=== PATIENT | female | born 1980 | race Caucasian/White ===

== ENCOUNTER 2016-09-08 08:15 | Inpatient (IN) | payer OTHER ==
[~2016-09-08] VITALS: Ht 162.6 cm; Wt 104.3 kg
[2016-09-08] VITALS (49 sets, daily range): BP systolic 98–176; BP diastolic 55–94
[~2016-09-08 08:15] MED LIST: DCS100C PO; HYDR-3720 PO; IBP800T PO; LVT.088T PO; OXYC1TAB12 PO; PREN-102 PO
[2016-09-08] MEDS ORDERED: OXYTOCIN/NORMAL SALINE 500 ML IV SCH ×3 (08:47→12:46)
[2016-09-08] MEDS ORDERED: LIDOCAINE/EPI 1%-1:200,000 (XYLOCAINE) 30 ML VIAL ONE (08:48)
[2016-09-08] MEDS: D5 LR IV SOLUTION 1,000 ML IV SCH ×2 (09:13→15:48)
[2016-09-08 09:27] LABS: BASOPHILS % (AUTO) 0 % (0-10); EOSINOPHILS % (AUTO) 0 % (0-10); LYMPHOCYTES # (AUTO) 1.3 X 10^3 (1.0-4.0); LYMPHOCYTES % (AUTO) 16 % (12-44); MEAN CORPUSCULAR HEMOGLOBIN 30 PG (25-34); MEAN CORPUSCULAR HGB CONC 34 G/DL (32-36); MEAN CORPUSCULAR VOLUME 89 FL (80-99); MEAN PLATELET VOLUME 10.9 FL (7.4-10.4); MONOCYTES # (AUTO) 0.6 X 10^3 (0.0-1.0); MONOCYTES % (AUTO) 8 % (0-12); NEUTROPHILS # (AUTO) 6.5 X 10^3 (1.8-7.8); NEUTROPHILS % (AUTO) 77 % (42-75); PLATELET COUNT 160 10^3/uL (130-400); RED BLOOD COUNT 4.11 10^6/uL (4.35-5.85); RED CELL DISTRIBUTION WIDTH 13.8 % (10.0-14.5); WHITE BLOOD COUNT 8.5 10^3/uL (4.3-11.0)
[2016-09-08 09:28] LABS: BILIRUBIN,URINE NEGATIVE (NEGATIVE); KETONES,URINE NEGATIVE (NEGATIVE); LEUKOCYTE ESTERASE ,URINE 1+ (NEGATIVE); NITRITE,URINE NEGATIVE (NEGATIVE); PH,URINE 6.5 (5-9); PROTEIN,URINE NEGATIVE (NEGATIVE); UROBILINOGEN,URINE NORMAL (NORMAL)
[2016-09-08 09:36] LABS: SQUAMOUS EPITHELIAL CELL,UR 25-50 /HPF; WBC,URINE RARE /HPF
--- NOTE | 2016-09-08 12:51 | History & Physical ---
History and Physical this patient is a 35-year-old white female with an EDC of 5 [phone] putting her now at 38 weeks and 2 days. She was admitted for induction of labor secondary to polyhydramnios that has been progressive. 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 Patient denies rupture membranes or bleeding. She is having occasional contractions on presentation. She does feel baby moving. GBS culture was negative. Allergies are none Medications are vitamins and levothyroxine 112 g daily Medical social histories are per the antepartum record HEENT exam is normal Neck is supple no lymphadenopathy no thyromegaly Abdomen is gravid soft nontender nondistended Extremities show no clubbing cyanosis. There is no Homans sign. Pelvic exam shows a cervix 2 cm dilated 60 percent effaced -1 station soft and anterior which equates to a Matute score of 9 The monitor shows normal heart rate pattern patient has had an occasional D cell. There are no repetitive D cells and variability is adequate Laboratory Tests Test 09/08/16 09:07 09/08/16 09:15 Range/Units White Blood Count 8.5 4.3-11.0 10^3/uL Red Blood Count 4.11 L 4.35-5.85 10^6/uL Hemoglobin 12.4 11.5-16.0 G/DL Hematocrit 37 35-52 % Mean Corpuscular Volume 89 80-99 FL Mean Corpuscular Hemoglobin 30 25-34 PG Mean Corpuscular Hemoglobin Concent 34 32-36 G/DL Red Cell Distribution Width 13.8 10.0-14.5 % Platelet Count 160 130-400 10^3/uL Mean Platelet Volume 10.9 H 7.4-10.4 FL Neutrophils (%) (Auto) 77 H 42-75 % Lymphocytes (%) (Auto) 16 12-44 % Monocytes (%) (Auto) 8 0-12 % Eosinophils (%) (Auto) 0 0-10 % Basophils (%) (Auto) 0 0-10 % Neutrophils # (Auto) 6.5 1.8-7.8 X 10^3 Lymphocytes # (Auto) 1.3 1.0-4.0 X 10^3 Monocytes # (Auto) 0.6 0.0-1.0 X 10^3 Eosinophils # (Auto) 0.0 0.0-0.3 10^3/uL Basophils # (Auto) 0.0 0.0-0.1 10^3/uL Urine Color YELLOW Urine Clarity CLEAR Urine pH 6.5 5-9 Urine Specific [place] 1.020 1.016-1.022 Urine Protein NEGATIVE NEGATIVE Urine Glucose (UA) NEGATIVE NEGATIVE Urine Ketones NEGATIVE NEGATIVE Urine Nitrite NEGATIVE NEGATIVE Urine Bilirubin NEGATIVE NEGATIVE Urine Urobilinogen NORMAL NORMAL MG/DL Urine Leukocyte Esterase 1+ H NEGATIVE Urine RBC (Auto) NEGATIVE NEGATIVE Urine RBC NONE /HPF Urine WBC RARE /HPF Urine Squamous Epithelial Cells 25-50 H /HPF Urine Crystals NONE /LPF Urine Bacteria TRACE /HPF Urine Casts NONE /LPF Urine Mucus NEGATIVE /LPF Urine Culture Indicated NO Lab work is within normal limits for Assessment and plan 38-7 weeks' gestation with polyhydramnios in a patient with his is complicated by vanishing twin syndrome. Patient is being induced with Pitocin. Her contractions have begun somewhat intensify. We anticipate a vaginal delivery but would be prepared for if needed at 38-2/7 weeks' gestation with polyhydramnios Allergies and Home Medications Allergies Coded Allergies: No Known Drug Allergies (Unverified , 08/30/13) Home Medications Levothyroxine Sodium 88 Mcg Tablet, 88 MCG PO DAILY, (Reported) Vits #93/Iron Fum/Fa 1 Each Tablet, 1 TAB PO DAILY, (Reported) Clinical Quality Measures DVT/VTE Risk/Contraindication: Risk Factor Score Per Nursin RFS Level Per Nursing on Admit: 1=Low/No VTE PPX PANDA HARE MD Sep 08, 2016 12:51 pm
--- NOTE | 2016-09-08 12:52 | OB Bishop Score ---
Matute Score 9 PANDA HARE MD Sep 08, 2016 12:52 pm
[2016-09-08] MEDS ORDERED: TETANUS,DIPTH,PERTUSS P/F (BOOSTRIX) 0.5 ML VIAL IM ONE (13:00)
[2016-09-08] MEDS ORDERED: MEASLES,MUMPS,RUBELLA 1 EA INJ SC ONE (13:00)
[2016-09-08] MEDS ORDERED: oxyCODONE/APAP 10/325MG (PERCOCET 10) TABLET PO PRN (13:00)
[2016-09-08] MEDS ORDERED: BENZOCAINE/MENTHOL (DERMOPLAST) 56 ML CAN TP PRN (13:00)
[2016-09-08] MEDS ORDERED: LACTATED RINGERS 1,000 ML IV ONE ×2 (13:48→14:49)
[2016-09-08] MEDS ORDERED: SUFENTA 0.6MCG/ML BUPIVA 0.125 100 ML ONE (13:49)
[2016-09-08] MEDS ORDERED: CATHETER FLUSH 10 ML SYR IV SCH (14:00)
[2016-09-08] MEDS ORDERED: ONDANSETRON 4 MG/2 ML (SDV) Z0FRAN ONE (14:27)
[2016-09-08] MEDS ORDERED: BUPIVACAINE 0.25% 30 ML (SENSORCAINE) VIAL ONE (14:28)
[2016-09-08] MEDS ORDERED: BUPIVACAINE 0.25% 30 ML (SENSORCAINE) VIAL INJ ONE (15:00)
[2016-09-08] MEDS ORDERED: NALOXONE 0.4 MG/ML 1 ML (NARCAN) VIAL IV PRN (15:00)
[2016-09-08] MEDS ORDERED: EPIDURAL (SUFENTA 0.6MCG/ML BUPIVA 0.125%) 100 ML BAG EPI SCH (15:00)
[2016-09-08] MEDS: KETOROLAC 30 MG/ML VIAL IV SCH (19:06)
[2016-09-08] MEDS: DOCUSATE SODIUM 100 MG (COLACE) CAP PO SCH (21:45)
[2016-09-09 01:05] VITALS: BP 128/82
[2016-09-09] MEDS: KETOROLAC 30 MG/ML VIAL IV SCH ×2 (01:10→07:02)
[2016-09-09 05:35] VITALS: BP 114/80
--- NOTE | 2016-09-09 07:43 | Progress Note-Standard ---
Standard Progress Note Progress Notes/Assess & Plan Progress/Assessment & Plan this patient is without complaint. She is ambulating, voiding, tolerating by mouth well, has good pain control. Vital Signs Date Time Temp Pulse Resp B/P (MAP) Pulse Ox O2 Delivery O2 Flow Rate FiO2 09/09/16 05:35 97.4 91 18 114/80 97 Room Air 09/09/16 01:05 96.6 93 18 128/82 97 Room Air 09/08/16 20:34 108 18 127/71 Room Air 09/08/16 20:32 97.6 106 18 123/59 Room Air 09/08/16 20:17 103 18 125/70 Room Air 09/08/16 20:02 112 18 137/77 Room Air 09/08/16 19:47 105 18 121/58 Room Air 09/08/16 19:35 98 18 131/62 Room Air 09/08/16 19:33 99.0 106 18 176/65 Room Air 09/08/16 19:18 106 18 137/69 Room Air 09/08/16 19:04 98.8 106 18 130/81 Room Air 09/08/16 17:45 99.3 108 18 135/79 Room Air 09/08/16 17:30 108 18 125/76 Room Air 09/08/16 17:15 96 18 128/67 Room Air 09/08/16 16:50 100 18 113/59 Room Air 09/08/16 16:15 109 18 100 Room Air 09/08/16 16:00 102 18 100/66 99 Room Air 09/08/16 15:45 104 20 115/60 100 Room Air 09/08/16 15:30 99 20 100 Room Air 09/08/16 15:25 108 18 104/59 100 Room Air 09/08/16 15:20 107 18 120/61 100 Room Air 09/08/16 15:15 101 20 104/55 100 Room Air 09/08/16 15:10 107 18 106/55 99 Room Air 09/08/16 15:05 111 18 98/56 100 Room Air 09/08/16 15:00 112 20 139/80 100 Room Air 09/08/16 14:55 118 18 113/59 99 Room Air 09/08/16 14:50 118 18 118/61 99 Room Air 09/08/16 14:45 122 20 139/80 100 Room Air 09/08/16 14:40 101 18 141/80 100 Room Air 09/08/16 14:35 110 18 144/77 100 Room Air 09/08/16 14:30 98.4 106 20 140/73 Room Air 09/08/16 14:15 96 18 124/75 Room Air 09/08/16 14:00 100 18 127/79 Room Air 09/08/16 13:45 96 18 122/76 Room Air 09/08/16 13:30 96 18 132/83 Room Air 09/08/16 13:15 100 18 122/77 Room Air 09/08/16 13:00 100 18 130/82 Room Air 09/08/16 12:45 96 18 133/85 Room Air 09/08/16 12:30 100 18 123/79 Room Air 09/08/16 12:15 94 18 127/82 Room Air 09/08/16 12:00 98.6 102 18 132/80 Room Air 09/08/16 11:45 103 18 132/81 Room Air 09/08/16 11:30 103 18 132/84 Room Air 09/08/16 11:15 99 18 130/82 Room Air 09/08/16 11:00 99 18 130/82 Room Air 09/08/16 10:45 97.9 100 18 127/70 Room Air 09/08/16 10:30 97 18 139/78 Room Air 09/08/16 10:15 103 18 135/81 Room Air 09/08/16 10:00 118 18 129/74 Room Air 09/08/16 09:45 102 18 137/75 Room Air 09/08/16 09:30 109 18 149/83 Room Air 09/08/16 09:15 130 18 147/94 Room Air 09/08/16 08:30 98.6 114 18 137/87 Room Air vital signs are stable. Patient is afebrile. Fundus is firm below the umbilicus and nontender. Extremities show no clubbing cyanosis. There is no Homans sign. There is some pretibial pitting edema that is normal. Assessment and plan day number 1 status post term spontaneous vaginal delivery doing well. Plan is for routine convalescence care today and discharge home tomorrow Final Diagnosis term spontaneous vaginal delivery PANDA HARE MD Sep 09, 2016 7:43 am
[2016-09-09] MEDS ORDERED: IBUP-1780 PO (07:44)
[2016-09-09] MEDS ORDERED: OXYC-465 PO (07:45)
[2016-09-09] MEDS ORDERED: DOCU100C37 PO (07:45)
--- NOTE | 2016-09-09 07:45 | Discharge Instructions ---
Discharge Instructions Discharge Medications New, Converted or Re-Newed RX: RX on Chart Patient Instructions Patient Instructions: as directed Return to The Hospital For: as directed Activity & Diet Discharge Diet: No Restrictions Activity as Tolerated: No Orders-Post D/C & Referrals Follow Up Appt: Call to make follow up appt. for patient in 4 weeks. Activity Per routine post vaginal delivery instructions. Please call in RX to patient pharmacy. Diet as tolerated Patient may shower or tub bathe as desired. PANDA HARE MD Sep 09, 2016 7:45 am
--- NOTE | 2016-09-09 08:06 | OPERATIVE REPORT ---
DATE OF SERVICE: 09/08/2016 DELIVERY NOTE The patient delivered by term spontaneous vaginal delivery a viable female infant with Apgars of 9 and 9 at 1 and 5 minutes. Expected weight was 6 pounds 1 ounces. time was 1631. The infant had a single nuchal cord that was easily released. Cord blood gas was 7.29. The patient delivered by term spontaneous vaginal delivery without difficulty. The was bulb suctioned on delivery of the head and again on completion of delivery. The umbilical cord was doubly clamped, father cut the cord, the baby was passed to mom's abdomen. Episiotomy had been performed at the patient's request as the perineum began to tear in multiple locations. Episiotomy was performed. The patient delivered the baby with the next 2 pushes. The placenta delivered spontaneously Ji. This patient had a history of vanishing twin, there was anomaly on one periphery at the placenta and there were blood vessels that traveled off the bed of the placenta and there was no placental tissue that those blood vessels coursed to. The placenta was sent to pathology for permanent section. The cervix, vagina, rectum and perineum were examined and found essentially intact, except for multiple lacerations of the hymenal ring and the midline episiotomy, all of which were repaired with a single suture of 3-0 Vicryl Rapide. Good reapproximation was achieved. Good hemostasis was achieved. Good cosmetic effect was achieved. The patient tolerated the delivery and the repair well and remained in the LDR for recovery. The baby remained with the mom. Sponge and needle counts were correct on completion of the delivery and the repair. Estimated blood loss was around 300 cc. Job ID: [id number] DocumentID: [id number] Dictated Date: 09/08/2016 16:58:31 Propellant Charge Zone Assembler Date: 09/09/2016 05:10:33 Dictated By: PANDA HARE MD
[2016-09-09] MEDS ORDERED: TETANUS,DIPTH,PERTUSS P/F (BOOSTRIX) 0.5 ML VIAL IM ONE (08:39)
[2016-09-09 09:37] VITALS: BP 122/70
[2016-09-09] MEDS: DOCUSATE SODIUM 100 MG (COLACE) CAP PO SCH ×2 (09:39→20:48)
[2016-09-09 12:45] VITALS: BP 116/78
[2016-09-09] MEDS: IBUPROFEN 800 MG (MOTRIN) TAB PO SCH ×2 (12:57→18:40)
--- NOTE | 2016-09-09 13:06 | Anesthesia-Regional Post-Op ---
Regional Patient Condition Mental Status: Alert, Oriented x3 Circulation: Same as Pre-Op Headache: Absent Sensation: Full Recovery Motor Block: Absent Post Op Complications Complications None Follow Up Care/Instructions Patient Instructions None needed. Anesthesia/Patient Condition Patient is doing well, no complaints, stable vital signs, no apparent adverse anesthesia problems. No complications reported per nursing. KAYA PALACIOS CRNA Sep 09, 2016 13:06
[2016-09-09 17:40] VITALS: BP 111/75
[2016-09-09 22:10] VITALS: BP 146/90
[2016-09-10] MEDS: IBUPROFEN 800 MG (MOTRIN) TAB PO SCH ×3 (00:40→12:19)
[2016-09-10 04:55] VITALS: BP 121/86
--- NOTE | 2016-09-10 07:36 | Progress Note-Standard ---
Standard Progress Note Progress Notes/Assess & Plan Progress/Assessment & Plan this patient is without complaint. She is ambulating, voiding, tolerating by mouth well, has good pain control. Vital Signs Date Time Temp Pulse Resp B/P (MAP) Pulse Ox O2 Delivery O2 Flow Rate FiO2 09/09/16 05:35 97.4 91 18 114/80 97 Room Air 09/09/16 01:05 96.6 93 18 128/82 97 Room Air 09/08/16 20:34 108 18 127/71 Room Air 09/08/16 20:32 97.6 106 18 123/59 Room Air 09/08/16 20:17 103 18 125/70 Room Air 09/08/16 20:02 112 18 137/77 Room Air 09/08/16 19:47 105 18 121/58 Room Air 09/08/16 19:35 98 18 131/62 Room Air 09/08/16 19:33 99.0 106 18 176/65 Room Air 09/08/16 19:18 106 18 137/69 Room Air 09/08/16 19:04 98.8 106 18 130/81 Room Air 09/08/16 17:45 99.3 108 18 135/79 Room Air 09/08/16 17:30 108 18 125/76 Room Air 09/08/16 17:15 96 18 128/67 Room Air 09/08/16 16:50 100 18 113/59 Room Air 09/08/16 16:15 109 18 100 Room Air 09/08/16 16:00 102 18 100/66 99 Room Air 09/08/16 15:45 104 20 115/60 100 Room Air 09/08/16 15:30 99 20 100 Room Air 09/08/16 15:25 108 18 104/59 100 Room Air 09/08/16 15:20 107 18 120/61 100 Room Air 09/08/16 15:15 101 20 104/55 100 Room Air 09/08/16 15:10 107 18 106/55 99 Room Air 09/08/16 15:05 111 18 98/56 100 Room Air 09/08/16 15:00 112 20 139/80 100 Room Air 09/08/16 14:55 118 18 113/59 99 Room Air 09/08/16 14:50 118 18 118/61 99 Room Air 09/08/16 14:45 122 20 139/80 100 Room Air 09/08/16 14:40 101 18 141/80 100 Room Air 09/08/16 14:35 110 18 144/77 100 Room Air 09/08/16 14:30 98.4 106 20 140/73 Room Air 09/08/16 14:15 96 18 124/75 Room Air 09/08/16 14:00 100 18 127/79 Room Air 09/08/16 13:45 96 18 122/76 Room Air 09/08/16 13:30 96 18 132/83 Room Air 09/08/16 13:15 100 18 122/77 Room Air 09/08/16 13:00 100 18 130/82 Room Air 09/08/16 12:45 96 18 133/85 Room Air 09/08/16 12:30 100 18 123/79 Room Air 09/08/16 12:15 94 18 127/82 Room Air 09/08/16 12:00 98.6 102 18 132/80 Room Air 09/08/16 11:45 103 18 132/81 Room Air 09/08/16 11:30 103 18 132/84 Room Air 09/08/16 11:15 99 18 130/82 Room Air 09/08/16 11:00 99 18 130/82 Room Air 09/08/16 10:45 97.9 100 18 127/70 Room Air 09/08/16 10:30 97 18 139/78 Room Air 09/08/16 10:15 103 18 135/81 Room Air 09/08/16 10:00 118 18 129/74 Room Air 09/08/16 09:45 102 18 137/75 Room Air 09/08/16 09:30 109 18 149/83 Room Air 09/08/16 09:15 130 18 147/94 Room Air 09/08/16 08:30 98.6 114 18 137/87 Room Air vital signs are stable. Patient is afebrile. Fundus is firm below the umbilicus and nontender. Extremities show no clubbing cyanosis. There is no Homans sign. There is some pretibial pitting edema that is normal. Assessment and plan day number 1 status post term spontaneous vaginal delivery doing well. Plan is for routine convalescence care today and discharge home tomorrow September 10, 2016 Patient is without complaint. She is ambulating, voiding, tolerating by mouth, has good pain control and is requesting discharge home. Vital Signs Date Time Temp Pulse Resp B/P (MAP) Pulse Ox O2 Delivery O2 Flow Rate FiO2 09/10/16 04:55 98.6 78 18 121/86 98 Room Air 09/09/16 22:10 98.1 83 18 146/90 99 Room Air 09/09/16 17:40 98.5 80 18 111/75 96 Room Air 09/09/16 12:45 98.9 85 18 116/78 97 Room Air 09/09/16 09:37 97.0 94 18 122/70 97 Room Air I & O 09/10/16 07:00 Intake Total 1000 ml Balance 1000 ml vital signs are stable. Patient afebrile. Fundus is firm below the umbilicus and nontender. Extreme show clubbing cyanosis. There is no Homans sign. There is some pretibial pitting edema that is normal. Assessment and plan day number 2 status post term spontaneous vaginal delivery doing well. Plan is for discharge home with follow-up in clinic Final Diagnosis on spontaneous vaginal delivery PANDA HARE MD Sep 10, 2016 7:36 am
[2016-09-10 09:55] VITALS: BP 130/91
[2016-09-10] MEDS: DOCUSATE SODIUM 100 MG (COLACE) CAP PO SCH (09:55)
[2016-09-11] MEDS ORDERED: LORATADINE (CLARITIN) 10 MG TAB PO SCH (09:00)
== END 2016-09-10 15:25 | disposition home or self-care (01) | DRG 775 ==
LOC: LDRP 08:15
PROVIDERS: ADMIT Obstetrics & Gynecology; ATTEND Obstetrics & Gynecology
PROC: 10E0XZZ Delivery of Products of Conception, External Approach (ICD-10-PCS; principal; 2016-09-08)
PROC: 0W8NXZZ Division of Female Perineum, External Approach (ICD-10-PCS; 2016-09-08)
PROC: 0HQ9XZZ Repair Perineum Skin, External Approach (ICD-10-PCS; 2016-09-08)
PROC: 3E033GC Introduction of Other Therapeutic Substance into Peripheral Vein, Percutaneous Approach (ICD-10-PCS; 2016-09-08)
DX: O40.3XX0 Polyhydramnios, third trimester, not applicable or unspecified (principal); O31.10X0 Continuing pregnancy after spontaneous abortion of one fetus or more, unspecified trimester, not applicable or unspecified; O69.81X0 Labor and delivery complicated by cord around neck, without compression, not applicable or unspecified; O70.0 First degree perineal laceration during delivery; Z37.0 Single live birth; Z3A.38 38 weeks gestation of pregnancy; Z23 Encounter for immunization
CPT/HCPCS: 36415; 81000; 85025; 86850; 86900; 86901; 87088; 88307; 90715

== ENCOUNTER → 2018-03-09 | Outpatient (CLI) | payer OTHER ==
[~2018-03-09] MED LIST changes: +DOCU100C37 PO; +IBUP-1780 PO; +OXYC-465 PO
--- NOTE | 2018-03-09 13:53 | Diagnostic Imaging Report ---
INDICATION: Routine screening. COMPARISON: No prior mammograms are available for comparison. This is a baseline study. TECHNIQUE: 2D and 3D bilateral screening mammography was performed with CAD. FINDINGS: Both breasts are heterogeneously dense, limiting the sensitivity of mammography. An intraparenchymal lymph node in the outer portion of the right breast is seen. No spiculated masses or malignant appearing microcalcifications are identified. The axillae are unremarkable. IMPRESSION: No mammographic features suspicious for malignancy are identified. ACR BI-RADS Category 2: Benign findings. Result letter will be mailed to the patient. Note: At least 10% of breast cancer is not imaged by mammography. Dictated by: Dictated on workstation # [id number]
== END ==
LOC: RAD 11:07
PROVIDERS: ATTEND Obstetrics & Gynecology
DX: Z12.31 Encounter for screening mammogram for malignant neoplasm of breast (principal)
CPT/HCPCS: 77067

== ENCOUNTER 2018-10-20 10:30 | Outpatient (CLI) | payer OTHER, BC ==
[~2018-10-20] VITALS: Ht 162.6 cm; Wt 104.3 kg
[2018-10-20] MEDS ORDERED: LEVO112T55 PO (10:45)
== END 2018-10-20 11:00 | disposition home or self-care (01) ==
LOC: PREOP 10:30
PROVIDERS: ATTEND Obstetrics & Gynecology
DX: Z01.818 Encounter for other preprocedural examination (principal)

== ENCOUNTER 2018-10-27 11:30 | Day surgery (SDC) | payer BC, OTHER ==
[~2018-10-27] VITALS: Ht 162.6 cm; Wt 104.3 kg
[2018-10-27] VITALS (11 sets, daily range): BP systolic 116–149; BP diastolic 84–103
[~2018-10-27 11:30] MED LIST changes: +LEVO112T55 PO
--- OUTSIDE RECORDS SUMMARY | 2018-10-27 11:34 | XMS REPORT | Continuity of Care Document ---
Author Organization Unknown Address Unknown Allergies Active Description Code Type Severity Reaction Onset Reported/Identified Relationship to Patient Clinical Status Yes No Known Drug Allergies [id number] Drug Allergy Unknown N/A 10/20/2018 Medications There is no data. Problems Date Dx Coded Attending Type Code Diagnosis Diagnosed By 09/02/2013 ANANYA DUKE, PANDA Schroeder Ot 543.0 09/02/2013 ANANYA DUKE, PANDA Schroeder Ot 614.6 09/02/2013 ANANYA DUKE, PANDA Schroeder Ot 617.1 09/02/2013 ANANYA DUKE, PANDA Schroeder Ot 617.3 09/02/2013 ANANYA DUKE, PANDA Schroeder Ot 620.0 09/02/2013 ANANYA DUKE, PANDA Schroeder Ot 620.1 09/02/2013 ANANYA DUKE, PANDA Schroeder Ot 625.8 09/02/2013 ANANYA DUKE, PANDA Schroeder Ot 626.8 09/02/2013 ANANYA DUKE, PANDA Schroeder Ot 752.19 04/30/2014 ANANYA DUKE, PANDA Schroeder Ot 617.9 04/30/2014 ANANYA DUKE, PANDA Schroeder Ot 620.2 04/30/2014 ANANYA DUKE, PANDA Schroeder Ot V72.63 04/30/2014 ANANYA DUKE, PANDA Schroeder Ot V72.84 04/30/2014 ANANYA DUKE, PANDA Schroeder Ot 617.9 04/30/2014 ANANYA DUKE, PANDA Schroeder Ot 620.2 04/30/2014 ANANYA DUKE, PANDA Schroedre Ot V72.63 04/30/2014 ANANYA DUKE, PANDA Schroeder Ot V72.84 04/30/2014 ALIDA CARTAGENA DO Ot 646.83 PREG COMPL NEC-ANTEPART 04/30/2014 ALIDA CARTAGENA DO, Ot 786.09 RESPIRATORY ABNORM NEC 04/30/2014 ALIDA CARTAGENA DO Ot 786.50 CHEST PAIN NOS 10/07/2014 PANDA HARE MD, Ot 658.01 OLIGOHYDRAMNIOS-DELIVER 10/07/2014 PANDA HARE MD, Ot 663.31 CORD ENTANGLE NEC-DELIV 10/07/2014 PANDA HARE MD, Ot 665.41 HIGH VAGINAL LACER-DELIV 10/07/2014 PANDA HARE MD, Ot V06.1 [id number], COMBINED [ 10/07/2014 PANDA HARE MD, Ot V27.0 DELIVER-SINGLE LIVEBORN 04/27/2016 SUSIE BARBER APRN Ot S93.401A SPRAIN OF UNSPECIFIED LIGAMENT OF RIGHT 04/27/2016 SUSIE BARBER APRN Ot S99.911A UNSPECIFIED INJURY OF RIGHT ANKLE, INITI 04/27/2016 SUSIE BARBER APRN Ot W10.9XXA FALL (ON) (FROM) UNSPECIFIED STAIRS AND 04/27/2016 SUSIE BARBER APRN Ot Y92.[address] OR NOT APPLICABLE 04/27/2016 SUSIE BARBER APRN Ot Y93.9 ACTIVITY, UNSPECIFIED 04/27/2016 SUSIE BARBER APRN Ot Y99.8 OTHER EXTERNAL CAUSE STATUS 04/27/2016 SUSIE BARBER APRN Ot Z3A.19 19 WEEKS GESTATION OF 09/10/2016 PANDA HARE MD, Ot O31.10X0 CONT PREG AFT SPON ABORT OF ONE FTS OR M 09/10/2016 PANDA HARE MD, Ot O40.3XX0 POLYHYDRAMNIOS, THIRD TRIMESTER, NOT LAVERNE 09/10/2016 PANDA HARE MD, Ot O69.81X0 LABOR AND DEL COMP BY CORD AROUND NECK, 09/10/2016 PANDA HARE MD, Ot O70.0 FIRST DEGREE PERINEAL LACERATION DURING 09/10/2016 PANDA HARE MD, Ot Z23 ENCOUNTER FOR IMMUNIZATION 09/10/2016 PANDA HARE MD, Ot Z37.0 SINGLE LIVE 09/10/2016 PANDA HARE MD, Ot Z3A.38 38 WEEKS GESTATION OF 03/10/2018 PANDA HARE MD, Ot Z12.31 ENCNTR SCREEN MAMMOGRAM FOR MALIGNANT NE 03/31/2018 PANDA HARE MD, Ot Z12.31 ENCNTR SCREEN MAMMOGRAM FOR MALIGNANT NE 10/19/2018 PANDA HARE MD, Ot Z12.31 ENCNTR SCREEN MAMMOGRAM FOR MALIGNANT NE 10/20/2018 PANDA HARE MD, Ot Z01.818 ENCOUNTER FOR OTHER PREPROCEDURAL EXAMIN 10/20/2018 PANDA HARE MD, Ot Z01.818 ENCOUNTER FOR OTHER PREPROCEDURAL EXAMIN 10/20/2018 PANDA HARE MD, Ot Z01.818 ENCOUNTER FOR OTHER PREPROCEDURAL EXAMIN 10/20/2018 PANDA HARE MD, Ot Z01.818 ENCOUNTER FOR OTHER PREPROCEDURAL EXAMIN 10/20/2018 PANDA HARE MD, Ot Z01.818 ENCOUNTER FOR OTHER PREPROCEDURAL EXAMIN 10/25/2018 PANDA HARE MD, Ot Z12.31 ENCNTR SCREEN MAMMOGRAM FOR MALIGNANT NE 10/26/2018 PANDA HARE MD, Ot Z01.818 ENCOUNTER FOR OTHER PREPROCEDURAL EXAMIN Procedures Code Description Performed By Performed On 72.1 LOW FORCEPS W EPISIOTOMY 10/05/2014 75.69 REPAIR OB LACERATION NEC 10/05/2014 [id number] REPAIR PERINEUM SKIN, EXTERNAL APPROACH 09/08/2016 [id number] DIVISION OF FEMALE PERINEUM, EXTERNAL AP 09/08/2016 13C6JKH DELIVERY OF PRODUCTS OF CONCEPTION, EXTE 09/08/2016 1X200AK INTRODUCE OTH THERAP SUBST IN PERIPH VEI 09/08/2016 Results Test Result Range Complete blood count (CBC) with automated white blood cell (WBC) differential - 09/08/16 09:07 Blood leukocytes automated count (number/volume) 8.5 10*3/uL 4.3-11.0 Blood erythrocytes automated count (number/volume) 4.11 10*6/uL 4.35-5.85 Venous blood hemoglobin measurement (mass/volume) 12.4 g/dL 11.5-16.0 Blood hematocrit (volume fraction) 37 % 35-52 Automated erythrocyte mean corpuscular volume 89 [foz_us] 80-99 Automated erythrocyte mean corpuscular hemoglobin (mass per erythrocyte) 30 pg 25-34 Automated erythrocyte mean corpuscular hemoglobin concentration measurement (mass/volume) 34 g/dL 32-36 Automated erythrocyte distribution width ratio 13.8 % 10.0- 14.5 Automated blood platelet count (count/volume) 160 10*3/uL 130-400 Automated blood platelet mean volume measurement 10.9 [foz_us] 7.4-10.4 Automated blood neutrophils/100 leukocytes 77 % 42-75 Automated blood lymphocytes/100 leukocytes 16 % 12-44 Blood monocytes/100 leukocytes 8 % 0-12 Automated blood eosinophils/100 leukocytes 0 % 0-10 Automated blood basophils/100 leukocytes 0 % 0-10 Blood neutrophils automated count (number/volume) 6.5 10*3 1.8-7.8 Blood lymphocytes automated count (number/volume) 1.3 10*3 1.0-4.0 Blood monocytes automated count (number/volume) 0.6 10*3 0.0- 1.0 Automated eosinophil count 0.0 10*3/uL 0.0-0.3 Automated blood basophil count (count/volume) 0.0 10*3/uL 0.0-0.1 Blood type T Indirect antibody screen panel - 09/08/16 09:07 ABO+Rh group OP NRG Transfusion band number [id number] BANNER Blood group antibody screen NEGATIVE NR Complete urinalysis with reflex to culture - 09/08/16 09:15 Urine color determination YELLOW NRG Urine clarity determination CLEAR NRG Urine pH measurement by test strip 6.5 5-9 Specific gravity of urine by test strip 1.020 1.016-1.022 Urine protein assay by test strip, semi-quantitative NEGATIVE NEGATIVE Urine glucose detection by automated test strip NEGATIVE NEGATIVE Erythrocytes detection in urine sediment by light microscopy NEGATIVE NEGATIVE Urine ketones detection by automated test strip NEGATIVE NEGATIVE Urine nitrite detection by test strip NEGATIVE NEGATIVE Urine total bilirubin detection by test strip NEGATIVE NEGATIVE Urine urobilinogen measurement by automated test strip (mass/volume) NORMAL NORMAL Urine leukocyte esterase detection by dipstick 1+ NEGATIVE Automated urine sediment erythrocyte count by microscopy (number/high power field) NONE NRG Automated urine sediment leukocyte count by microscopy (number/high power field) RARE NRG Bacteria detection in urine sediment by light microscopy TRACE NRG Squamous epithelial cells detection in urine sediment by light microscopy 25-50 NRG Crystals detection in urine sediment by light microscopy NONE NRG Casts detection in urine sediment by light microscopy NONE NRG Mucus detection in urine sediment by light microscopy NEGATIVE NRG Complete urinalysis with reflex to culture NO NRG Bacterial urine culture - 09/08/16 09:15 URINE CULTURE RESULTS AT LEAST 4 ISOLATES NRG Encounters ACCT No. Visit Date/Time Discharge Status Pt. Type Provider Facility Loc./Unit Complaint [id number] 10/20/2018 10:30:00 10/20/2018 11:00:00 DIS Outpatient PANDA HARE MD [facility] PREOP [place] [id number] 03/09/2018 11:07:00 03/09/2018 23:59:59 CLS Outpatient PANDA HARE MD [facility] RAD BASELINE [id number] 01/28/2018 09:31:00 01/28/2018 23:59:59 CLS Preadmit PANDA HARE MD [facility] RAD BASELINE [id number] 09/08/2016 08:15:00 09/10/2016 15:25:00 DIS Inpatient PANDA HARE MD [facility] LDRP INDUCTION [id number] 04/27/2016 14:21:00 04/27/2016 15:39:00 DIS Emergency SUSIE BARBER CHILD ADVOCATE [facility] ER 19 WKS PREG/FALL/R ANKLE INJ [id number] 10/05/2014 04:06:00 10/07/2014 14:20:00 DIS Inpatient PANDA HARE MD [facility] LDRP INDUCTION [id number] 04/30/2014 16:14:00 04/30/2014 21:24:00 DIS Emergency ALIDA CARTAGENA DO [facility] ER POSS BLOOD CLOT, 15 WKS PREG [id number] 09/02/2013 11:00:00 09/02/2013 17:40:00 DIS Outpatient PANDA HARE MD [facility] [id number] 08/30/2013 12:07:00 08/30/2013 23:59:59 CLS Outpatient PANDA HARE MD [facility] PREOP [id number] 10/25/2018 13:00:00 PEN Preadmit PANDA HARE MD [facility] P[place] [id number] 04/30/2014 21:33:38 ACT Document Registration
[2018-10-27] MEDS ORDERED: ceFAZolin INJECTION 1,000 MG in WATER (STERILE) FOR INJECTION 10 ML IV ONE (11:45)
[2018-10-27] MEDS ORDERED: LACTATED RINGERS 1,000 ML IV PRN (11:45)
--- NOTE | 2018-10-27 12:05 | Progress Note-Pre Operative ---
Pre-Operative Progress Note H&P Reviewed The H&P was reviewed, patient examined and no changes noted. Date Seen by Provider: Oct 27, 2018 Time Seen by Provider: 12:05 Date H&P Reviewed: Oct 27, 2018 Time H&P Reviewed: 12:05 Pre-Operative Diagnosis: Dysfunctional uterine bleeding/intrauterine mass PANDA HARE MD Oct 27, 2018 12:05
[2018-10-27] MEDS ORDERED: D5 LR IV SOLUTION 1,000 ML IV SCH (12:06)
--- NOTE | 2018-10-27 12:06 | Progress Note-Post Operative ---
Post-Operative Progess Note Surgeon (s)/Salvage Engineering Technician (s) Surgeon PANDA HARE MD Salvage Engineering Technician: no Pre-Operative Diagnosis Dysfunctional uterine bleeding/intrauterine mass - PERIANAL LESION Post-Operative Diagnosis Same with pathology pending Procedure & Operative Findings Date of Procedure 10/27/18 Procedure Performed/Findings Hysteroscopy with IUD removal and with directed biopsy and D&C AND EXCISION OF PERIANAL LESION Anesthesia Type GETA Estimated Blood Loss Estimated blood loss (mL): MIN Specimens/Packing Specimens Removed Intrauterine mass and endometrial curettings, PERIANAL SKIN LESION PANDA HARE MD Oct 27, 2018 12:06
[2018-10-27] MEDS ORDERED: OXYC1TAB87 PO (12:08)
--- NOTE | 2018-10-27 12:10 | Discharge Instructions ---
Discharge Instructions Discharge Medications New, Converted or Re-Newed RX: RX on Chart Patient Instructions Patient Instructions: As directed Return to The Hospital For: As directed Activity & Diet Discharge Diet: No Restrictions Activity as Tolerated: No Orders-Post D/C & Referrals Follow Up Appt: Call to make follow up appt. for patient in 1 weeks. Activity: Rest for 24 hours, than as tolerated. Diet: As tolerated-Clear Liquids only if nauseated. may shower or tub bathe as desired. Nothing per vagina (no tampons, douching, or intercourse) for 1 weeks. Patient to return to the clinic as soon as possible for: Temperature greater than 101F, Severe Pain, Foul discharge from incision or vagina, Excessive Bleeding (more than a period). PANDA HARE MD Oct 27, 2018 12:10
[2018-10-27] MEDS ORDERED: MEPERIDINE (DEMEROL) INJ 100 MG/ML IM ONE (12:15)
[2018-10-27] MEDS ORDERED: oxyCODONE/APAP 5/325MG (PERCOCET 5) TABLET PO PRN (12:15)
[2018-10-27] MEDS ORDERED: KETOROLAC 30 MG/ML VIAL IVP ONE (12:15)
[2018-10-27] MEDS ORDERED: PROMETHAZINE INJ 25 MG/ML (PHENERGAN) AMP IM ONE (12:15)
[2018-10-27] MEDS ORDERED: ESTROGENS CONJ IV 25 MG/5 ML (PREMARIN) VIAL IVP ONE (12:15)
[2018-10-27] MEDS ORDERED: ONDANSETRON 4 MG/2 ML (SDV) Z0FRAN IVP PRN ×2 (12:15→14:00)
[2018-10-27] MEDS ORDERED: proPOfol 200 MG/20 ML (DIPRIVAN) VIAL IV ONE (12:28)
[2018-10-27] MEDS ORDERED: ONDANSETRON 4 MG/2 ML (SDV) Z0FRAN ONE ×2 (12:28→12:34)
[2018-10-27] MEDS ORDERED: LIDOCAINE PF 2% 5 ML (XYLOCAINE) VIAL ONE (12:28)
[2018-10-27] MEDS ORDERED: DEXAMETHASONE 10 MG/ML (DECADRON) 1 ML VIAL ONE (12:28)
[2018-10-27] MEDS ORDERED: MIDAZOLAM 2 MG/2 ML (VERSED) VIAL ONE (12:29)
[2018-10-27] MEDS ORDERED: fentaNYL INJECTION 100 MCG/2 ML AMP ONE (12:29)
[2018-10-27] MEDS ORDERED: SCOPOLAMINE 1.5 MG (TRANSDERM-SCOP) PATCH ONE (12:34)
[2018-10-27] MEDS ORDERED: FAMOTIDINE 20MG/2ML IV (PEPCID) ONE (12:34)
[2018-10-27 12:57] LABS: BASOPHILS % (AUTO) 0 % (0-10); EOSINOPHILS # (AUTO) 0.1 10^3/uL (0.0-0.3); EOSINOPHILS % (AUTO) 1 % (0-10); HEMATOCRIT 43 % (35-52); HEMOGLOBIN 14.5 G/DL (11.5-16.0); LYMPHOCYTES # (AUTO) 2.2 X 10^3 (1.0-4.0); LYMPHOCYTES % (AUTO) 29 % (12-44); MEAN CORPUSCULAR HEMOGLOBIN 29 PG (25-34); MEAN CORPUSCULAR HGB CONC 34 G/DL (32-36); MEAN CORPUSCULAR VOLUME 85 FL (80-99); MEAN PLATELET VOLUME 10.1 FL (7.4-10.4); MONOCYTES # (AUTO) 0.6 X 10^3 (0.0-1.0); MONOCYTES % (AUTO) 8 % (0-12); NEUTROPHILS # (AUTO) 4.7 X 10^3 (1.8-7.8); NEUTROPHILS % (AUTO) 63 % (42-75); PLATELET COUNT 210 10^3/uL (130-400); RED CELL DISTRIBUTION WIDTH 13.2 % (10.0-14.5); WHITE BLOOD COUNT 7.5 10^3/uL (4.3-11.0)
[2018-10-27] MEDS ORDERED: SCOPOLAMINE 1.5 MG (TRANSDERM-SCOP) PATCH TOP ONE (13:00)
[2018-10-27] MEDS ORDERED: FAMOTIDINE 20MG/2ML IV (PEPCID) IV ONE (13:00)
[2018-10-27] MEDS ORDERED: ONDANSETRON 4 MG/2 ML (SDV) Z0FRAN IV ONE (13:00)
[2018-10-27] MEDS ORDERED: SEVOFLURANE (ULTANE) 15 ML INHAL SOLN ONE (13:32)
[2018-10-27] MEDS ORDERED: morphine INJ 10 MG/ML 1ML (SYR OR VIAL) IVP ONE (14:00)
[2018-10-27] MEDS ORDERED: MEPERIDINE (DEMEROL) INJ 50 MG/ML IVP ONE (14:00)
[2018-10-27] MEDS ORDERED: PROMETHAZINE INJ 25 MG/ML (PHENERGAN) AMP IVP ONE (14:30)
--- NOTE | 2018-10-27 16:15 | NUR ---
HAS RESTED QUIETLY IN BED DURING RECOVERY. RATES PERIANAL LESION REMOVAL SITE PAIN 1. TEGADERM D/I OVER SITE. MINIMAL AMOUNT OF BLOODY DRAINAGE TO V-PAD. STEADY GAIT WHEN UP WITH ASSIST TO BR TO VOID. DENIES NAUSEA. STATES SHE IS READY FOR DISMISSAL.
--- NOTE | 2018-10-27 20:22 | OPERATIVE REPORT ---
DATE OF SERVICE: 10/27/2018 PREOPERATIVE DIAGNOSES: Dysfunctional uterine bleeding, history of endometrial polyps and right perianal lesion. POSTOPERATIVE DIAGNOSES: Dysfunctional uterine bleeding, history of endometrial polyps and right perianal lesion. OPERATIVE PROCEDURE: IUD removal, hysteroscopy with directed biopsies and D and C and resection of right perianal skin lesion. OPERATIVE DESCRIPTION: With the patient in supine position under satisfactory general anesthesia, she was repositioned in dorsal lithotomy position in the Bam stirrups and prepped and draped in usual fashion for vaginal surgery. Urinary bladder was drained with straight catheter. A weighted speculum placed in posterior fornix of vagina, cervix exposed and grasped anteriorly with single tooth tenaculum. Uterus was sounded to 10 cm after first removing a copper T IUD in the usual manner. The cervix was serially dilated with Prateek dilators to accommodate a hysteroscope, which was introduced using LR as a distending medium, the endometrial cavity was examined. There were polypoid lesions just distal to the tubal ostia on both sides. Outside Maintenance Worker biopsies were taken. Then, the hysteroscope was removed. The endometrial cavity sharply curettaged in all 4 quadrants to good uterine cry and that tissue was sent to pathology as endometrial curettings. The hysteroscope was reintroduced, endometrial cavity was examined. There was no significant bleeding. There was no remaining abnormal pathology. The hysteroscope was removed as was the tenaculum. There was no bleeding from the puncture sites. There was minimal oozing from the cervical os. The right perianal lesion was exposed and there was a 4 x 6 mm exophytic lesion that was excised by elevating and then essentially doing a shave biopsy to remove the lesion that lesion was sent to pathology for permanent section. The defect was treated with silver nitrate to effect hemostasis and then covered with a sterile dressing. Sponge and needle counts were correct on completion of the procedure. Estimated blood loss was minimal. The patient tolerated the procedure well and was uneventfully awakened from general anesthesia and transferred to the recovery room in stable condition with plans for discharge home PAR. Job ID: [id number] DocumentID: [id number] Dictated Date: 10/27/2018 13:37:27 Agricultural Engineering Technician Date: 10/27/2018 20:21:50 Dictated By: PANDA HARE MD [facility]
[2018-10-30] MEDS ORDERED: SCOPOLAMINE PATCH REMOVAL TP SCH (13:30)
== END 2018-10-27 16:15 | disposition home or self-care (01) ==
LOC: SDC 11:30
PROVIDERS: ATTEND Obstetrics & Gynecology
DX: N85.8 Other specified noninflammatory disorders of uterus (principal); D22.5 Melanocytic nevi of trunk; E03.9 Hypothyroidism, unspecified; E66.01 Morbid (severe) obesity due to excess calories; Z79.899 Other long term (current) drug therapy; Z68.39 Body mass index [BMI] 39.0-39.9, adult; Z11.2 Encounter for screening for other bacterial diseases
CPT/HCPCS: 36415; 84703; 85025; 87081

== ENCOUNTER → 2019-04-16 | Outpatient (CLI) | payer BC, OTHER ==
[~2019-04-16] MED LIST changes: +OXYC1TAB87 PO
== END ==
LOC: LAB 14:48
PROVIDERS: ATTEND Obstetrics & Gynecology
DX: N91.2 Amenorrhea, unspecified (principal)
CPT/HCPCS: 36415; 84144

== ENCOUNTER 2020-11-28 05:43 | Outpatient (CLI) | payer BC, OTHER ==
[~2020-11-28] VITALS: Ht 162.6 cm; Wt 111.4 kg
[~2020-11-28 05:43] MED LIST changes: -OXYC-465 PO; +OXYC-556 PO
== END 2020-11-29 10:38 | disposition home or self-care (01) ==
LOC: PREOP 05:43
PROVIDERS: ATTEND Obstetrics & Gynecology
DX: Z01.818 Encounter for other preprocedural examination (principal)

== ENCOUNTER 2020-12-05 11:37 | Day surgery (SDC) | payer BC, OTHER ==
[~2020-12-05] VITALS: Ht 162 cm; Wt 111.4 kg
[2020-12-05] VITALS (10 sets, daily range): BP systolic 132–145; BP diastolic 83–99
[2020-12-05] MEDS ORDERED: ceFAZolin INJECTION 1,000 MG in WATER (STERILE) FOR INJECTION 10 ML IV ONE (11:45)
[2020-12-05] MEDS ORDERED: LACTATED RINGERS 1,000 ML IV PRN (11:45)
[2020-12-05 12:16] LABS: BASOPHILS # (AUTO) 0.1 10^3/uL (0.0-0.1); BASOPHILS % (AUTO) 1 % (0-10); EOSINOPHILS # (AUTO) 0.1 10^3/uL (0.0-0.3); EOSINOPHILS % (AUTO) 1 % (0-10); HEMATOCRIT 39 % (35-52); HEMOGLOBIN 13.2 g/dL (11.5-16.0); LYMPHOCYTES # (AUTO) 2.3 10^3/uL (1.0-4.0); LYMPHOCYTES % (AUTO) 27 % (12-44); MEAN CORPUSCULAR HEMOGLOBIN 30 pg (25-34); MEAN CORPUSCULAR HGB CONC 34 g/dL (32-36); MEAN CORPUSCULAR VOLUME 87 fL (80-99); MEAN PLATELET VOLUME 10.5 fL (9.0-12.2); MONOCYTES # (AUTO) 0.5 10^3/uL (0.0-1.0); MONOCYTES % (AUTO) 6 % (0-12); NEUTROPHILS # (AUTO) 5.6 10^3/uL (1.8-7.8); NEUTROPHILS % (AUTO) 65 % (42-75); PLATELET COUNT 226 10^3/uL (130-400); WHITE BLOOD COUNT 8.6 10^3/uL (4.3-11.0)
[2020-12-05] MEDS ORDERED: proPOfol 200 MG/20 ML (DIPRIVAN) VIAL IV ONE (12:26)
[2020-12-05] MEDS ORDERED: PROPOFOL INJECTION 50 ML IV ONE (12:26)
[2020-12-05] MEDS ORDERED: fentaNYL INJ 100 MCG/2 ML AMP ONE (12:27)
[2020-12-05] MEDS ORDERED: FAMOTIDINE 20MG/2ML IV (PEPCID) ONE (12:39)
[2020-12-05] MEDS ORDERED: SCOPOLAMINE 1.5 MG (TRANSDERM-SCOP) PATCH ONE (12:39)
[2020-12-05] MEDS ORDERED: MIDAZOLAM 2 MG/2 ML (VERSED) VIAL ONE (12:39)
[2020-12-05] MEDS ORDERED: ONDANSETRON 4 MG/2 ML (SDV) Z0FRAN ONE ×2 (12:39→13:41)
[2020-12-05] MEDS ORDERED: MIDAZOLAM 2 MG/2 ML (VERSED) VIAL IVP ONE (12:45)
[2020-12-05] MEDS ORDERED: ONDANSETRON 4 MG/2 ML (SDV) Z0FRAN IVP ONE (12:45)
[2020-12-05] MEDS ORDERED: SCOPOLAMINE 1.5 MG (TRANSDERM-SCOP) PATCH TD ONE (12:45)
[2020-12-05] MEDS ORDERED: FAMOTIDINE 20MG/2ML IV (PEPCID) IVP ONE (12:45)
--- NOTE | 2020-12-05 12:47 | Progress Note-Pre Operative ---
Pre-Operative Progress Note H&P Reviewed The H&P was reviewed, patient examined and no changes noted. Date Seen by Provider: Dec 05, 2020 Time Seen by Provider: 12:44 Date H&P Reviewed: Dec 05, 2020 Time H&P Reviewed: 12:44 Pre-Operative Diagnosis: DUB/MENORRHAGIA/UTERINE MASS PANDA HARE MD Dec 05, 2020 12:47
--- NOTE | 2020-12-05 12:49 | Progress Note-Post Operative ---
Post-Operative Progess Note Surgeon (s)/Chief Client Officer (s) Surgeon PANDA HARE MD Chief Client Officer: None Pre-Operative Diagnosis DUB/MENORRHAGIA/UTERINE MASS Post-Operative Diagnosis SAME WITH PATH PENDING Procedure & Operative Findings Date of Procedure 12/05/20 Procedure Performed/Findings HYSTEROSCOPY WITH DIRECTED BIOPSY AND Fractional D&C Anesthesia Type GETA Estimated Blood Loss Estimated blood loss (mL): Minimal Specimens/Packing Specimens Removed DIRECTED ENDOMETIAL LESION BIOPSY AND ENDOMETRIAL CURETTINGS Packing: NONE PANDA HARE MD Dec 05, 2020 12:49
--- NOTE | 2020-12-05 12:51 | Discharge Inst-Surgical ---
Discharge Inst-Surgical Depart Medication/Instructions New, Converted or Re-Newed RX: Other Consults/Follow Up Patient Instructions: DIRECTED Orders & Referrals Follow Up Appt: Call to make follow up appt. for patient in 2 weeks. Activity: Rest for 24 hours, than as tolerated. Diet: As tolerated-Clear Liquids only if nauseated. shower or tub bathe as desired. Nothing per vagina (no tampons, douching, or intercourse) for 2 weeks. Patient to return to the clinic as soon as possible for: Temperature greater than 101F, Severe Pain, Foul discharge from incision or vagina, Excessive Bleeding (more than a period). Activity Activity as Tolerated: No Diet Discharge Diet: No Restrictions PANDA HARE MD Dec 05, 2020 12:51
[2020-12-05] MEDS ORDERED: LIDOCAINE PF 2% 5 ML (XYLOCAINE) VIAL ONE (12:59)
[2020-12-05] MEDS ORDERED: fentaNYL INJ 100 MCG/2 ML AMP IVP PRN (13:00)
[2020-12-05] MEDS ORDERED: oxyCODONE/APAP 5/325MG (PERCOCET 5) TABLET PO PRN (13:00)
[2020-12-05] MEDS ORDERED: KETOROLAC 30 MG/ML VIAL IVP ONE (13:00)
[2020-12-05] MEDS ORDERED: D5 LR IV SOLUTION 1,000 ML IV SCH (13:00)
[2020-12-05] MEDS ORDERED: ONDANSETRON 4 MG/2 ML (SDV) Z0FRAN IVP PRN (13:00)
[2020-12-05] MEDS ORDERED: KETOROLAC 30 MG/ML VIAL ONE (13:34)
--- NOTE | 2020-12-05 14:51 | Anesthesia-General Post-Op ---
General Patient Condition Mental Status/LOC: Same as Preop Cardiovascular: Satisfactory Nausea/Vomiting: Absent Respiratory: Satisfactory Pain: Controlled Complications: Absent Post Op Complications Complications None Follow Up Care/Instructions Patient Instructions None needed. Anesthesia/Patient Condition Patient Condition Patient is doing well, no complaints, stable vital signs, no apparent adverse anesthesia problems. No complications reported per nursing. KAYA PALACIOS CRNA Dec 05, 2020 14:51
--- NOTE | 2020-12-05 15:40 | OPERATIVE REPORT ---
DATE OF SERVICE: 12/05/2020 PREOPERATIVE DIAGNOSES: Dysfunctional uterine bleeding, menorrhagia and intrauterine mass on ultrasound. POSTOPERATIVE DIAGNOSES: Dysfunctional uterine bleeding, menorrhagia and intrauterine mass on ultrasound with pathology pending. OPERATIVE PROCEDURE: Hysteroscopy with directed biopsy and D and C as well as endocervical biopsy and ECC. OPERATIVE DESCRIPTION: With the patient in the supine position under satisfactory general anesthesia, she was repositioned in a dorsal lithotomy position in the [facility] and prepped and draped in the usual fashion for vaginal surgery. The urinary bladder was drained with a straight catheter. A weighted speculum placed in posterior fornix of vagina, cervix exposed, grasped anteriorly with a single tooth tenaculum. The uterus was sounded to 9 cm with uterine sound. The uterus was then serially dilated with Prateek dilators to accommodate a hysteroscope, which was inserted and using glycine as a distending medium, the endometrial cavity was examined. There were numerous polypoid masses on the surface of inside of the uterus. First Line Production Supervisor biopsies were taken from near the left tubal ostium and from near the right tubal ostium. The endometrial cavity was then sharply curettaged in all four quadrants with removal of large amount of tissue that was sent as endometrial curettings. As the hysteroscope was removed, the cervical canal was examined. There were multiple polyps in the cervical canal. First Line Production Supervisor biopsies were taken and then an ECC was performed as well. The hysteroscope was then reinserted. The endometrial cavity evacuated of all blood clot and debris and examined for hemostasis, which was satisfactory. With no significant bleeding and with no remaining abnormal pathology, the procedure was terminated. The operative instruments were recovered. The sponge and needle counts were correct. Blood loss was minimal. The patient tolerated the procedure well and was uneventfully awakened from her general anesthesia and transferred to the recovery room in stable condition. Approximately 100 mL of glycine was lost in the process. The balance of what was used was recovered through suction canister. Job ID: [id number] DocumentID: [id number] Dictated Date: 12/05/2020 13:32:00 Manifest/Order Organizer Print Orders Date: 12/05/2020 15:39:06 Dictated By: PANDA HARE MD
[2020-12-08] MEDS ORDERED: SCOPOLAMINE PATCH REMOVAL TP SCH (12:30)
== END 2020-12-05 15:21 ==
LOC: SDC 11:37
PROVIDERS: ATTEND Obstetrics & Gynecology
DX: N84.1 Polyp of cervix uteri (principal); N85.8 Other specified noninflammatory disorders of uterus; E03.9 Hypothyroidism, unspecified; E66.9 Obesity, unspecified; G47.33 Obstructive sleep apnea (adult) (pediatric); Z68.41 Body mass index [BMI] 40.0-44.9, adult; Z79.890 Hormone replacement therapy; Z98.890 Other specified postprocedural states; Z79.899 Other long term (current) drug therapy; Z87.42 Personal history of other diseases of the female genital tract
CPT/HCPCS: 36415; 84703; 85025; 87081; 88305